=== PATIENT | male | born 1945 | race Caucasian/White ===

== ENCOUNTER 2025-01-28 20:07 | Emergency (ER) | payer OTHER, BC ==
[2025-01-28 20:17] VITALS: BP 158/74; PULSE 82; RESP 16; TEMP 98.7; BMI 23.5
[2025-01-28] MEDS: CEPHALEXIN MONOHYDRATE 500 MG CAPSULE (UD) PO ONE (22:43)
[2025-01-28] MEDS ORDERED: CEPHALEXIN MONOHYDRATE 500 MG CAPSULE (UD) ONE (22:44)
== END 2025-01-28 23:05 | disposition home or self-care (01) ==
LOC: FER 20:07
DX: S01.311A Laceration without foreign body of right ear, initial encounter (principal); W18.09XA Striking against other object with subsequent fall, initial encounter
CPT/HCPCS: 70450-TC; 99284-25